=== PATIENT | female | born 1975 | race African-American/Black ===

== ENCOUNTER 2021-02-14 09:45 | Emergency (ER) | payer OTHER ==
[2021-02-14 10:13] LABS: BASOPHIL 0.6 % (0-2); EOSINOPHIL 2.9 % (0-5); HCT 36.3 % (37.0-47.0); HGB 12.5 g/dl (12.5-16.0); LYMPHOCYTE 23.5 % (15-48); MCH 29.1 pg (25.0-31.0); MCHC 34.4 g/dL (32.0-36.0); MCV 84.6 fL (78.0-100.0); MPV 11.5 fL (6.0-9.5); NEUTROPHIL 68.7 % (41-80); NRBC 0; PLT 261 K/uL (150-400); RBC 4.29 M/uL (4.20-5.40); WBC 6.3 K/uL (4.0-10.5)
[2021-02-14 10:47] LABS: ALBUMIN 3.3 g/dL (3.4-5.0); BILIRUBIN - TOTAL 0.4 mg/dL (0.2-1.0); BUN/CREAT RATIO (CALC) 13.2 RATIO; CREATININE 0.68 mg/dL (0.51-0.95); GLOBULIN (CALCULATION) 3.8 g/dL; POTASSIUM 3.6 mmol/L (3.5-5.1); TOTAL PROTEIN 7.1 g/dL (6.4-8.2)
[2021-02-14] MEDS ORDERED: CYCLOBENZAPRINE10 MG PO (11:23)
== END 2021-02-14 11:23 | disposition home or self-care (01) ==
LOC: FER 09:45
PROVIDERS: Emergency Medicine
DX: M54.5 Low back pain (principal)
CPT/HCPCS: 36415; 72100; 80053; 85025; J1885; J2930

== ENCOUNTER 2022-05-01 17:45 | Emergency (ER) | payer OTHER ==
[~2022-05-01 17:45] MED LIST: CYCLOBENZAPRINE10 MG PO
[2022-05-01 19:32] LABS: BASOPHIL 0.6 % (0-2); EOSINOPHIL 2.9 % (0-5); HCT 36.9 % (37.0-47.0); HGB 12.4 g/dl (12.5-16.0); MCH 29.5 pg (25.0-31.0); MCHC 33.6 g/dL (32.0-36.0); MCV 87.6 fL (78.0-100.0); MONOCYTE 5.7 % (0-12); MPV 12.2 fL (6.0-9.5); NEUTROPHIL 66.6 % (41-80); NRBC 0; PLT 271 K/uL (150-400); RBC 4.21 M/uL (4.20-5.40); RDW 13.2 % (11.5-14.0); WBC 6.3 K/uL (4.0-10.5)
[2022-05-01 19:44] LABS: ALBUMIN 3.6 g/dL (3.4-5.0); BILIRUBIN - TOTAL 3.1 mg/dL (0.2-1.0); CREATININE 0.75 mg/dL (0.51-0.95); GLOBULIN (CALCULATION) 3.6 g/dL; POTASSIUM 3.7 mmol/L (3.5-5.1); TOTAL PROTEIN 7.2 g/dL (6.4-8.2)
[2022-05-01 20:23] LABS: BILIRUBIN 2+ mg/dL (NEGATIVE); BLOOD TRACE-LYSED Ery/uL (NEGATIVE); CLARITY CLEAR (CLEAR); COLOR YELLOW (YELLOW); GLUCOSE (U) NORMAL (NORMAL); LEUKOCYTES TRACE Leu/uL (NEGATIVE); NITRITE NEGATIVE (NEGATIVE); PROTEIN NEGATIVE (NEGATIVE); SPECIFIC GRAVITY 1.015 (1.001-1.030); pH 6.5 (5.0-9.0)
[2022-05-01 21:15] LABS: INFLUENZA A NAA NEGATIVE (NEGATIVE)
[2022-05-01 21:25] LABS: CORONAVIRUS 2019 SARS-COV-2 POSITIVE (NEGATIVE)
== END 2022-05-02 21:00 | disposition other institution (70) ==
LOC: FER 17:45
PROVIDERS: Emergency Medicine
DX: K80.50 Calculus of bile duct without cholangitis or cholecystitis without obstruction (principal); U07.1 COVID-19
CPT/HCPCS: 36415; 80053; 81001; 83690; 85025; 87088; 93005; J2270; J2405; J2543; J7030; Q9967; U0002